=== PATIENT | male | born 1960 | race Caucasian/White ===

== ENCOUNTER 2016-04-01 16:55 | Inpatient (IN) | payer MEDICAID ==
[~2016-04-01] VITALS: Ht 167.6 cm; Wt 61.7 kg
[2016-04-01 17:29] LABS: BASOPHILS 0.2 % (0.0-2.0); EOSINOPHILS 0.1 % (0-7); HEMATOCRIT 43.1 % (42.0-54.0); HEMOGLOBIN 13.9 g/dL (13.5-17.5); IMMATURE GRANULOCYTES 0.4 % (0-5); LYMPHOCYTES 10.9 % (15-50); MCH 30.3 pg (26.0-34.0); MCHC 32.3 g/dL (31.0-37.0); MCV 94.1 fL (80.0-100.0); MEAN PLATELET VOLUME 10.1 fL (7.4-10.4); MONOCYTES 15.3 % (2-11); NEUTROPHILS 73.1 % (40-80); PLATELET COUNT 273 10x3/uL (130-400); RBC 4.58 10x6/uL (4.20-6.10); RDW 13.5 % (11.5-14.5); WBC 8.1 10x3/uL (4.8-10.8)
[2016-04-01 17:43] LABS: ALBUMIN 3.9 g/dL (3.4-5.0); ALKALINE PHOSPHATASE 67 U/L (46-116); ALT (SGPT) 32 U/L (10-68); BILIRUBIN - TOTAL 0.34 mg/dL (0.2-1.3); CALC OSMOLALITY 282 mosm/kg (275-300); CALCIUM 9.1 mg/dL (8.5-10.1); CARBON DIOXIDE 29.1 mmol/L (21.0-32.0); CHLORIDE - SERUM 98 mmol/L (98-107); GLUCOSE 83 mg/dL (74-106); POTASSIUM - SERUM 4.4 mmol/L (3.5-5.1); PROTEIN - SERUM 7.8 g/dL (6.4-8.2); SODIUM 138 mmol/L (136-145); UREA NITROGEN 34 mg/dL (7-18); eGFR NON AFRICAN AMERICAN 82 mL/min (90-120)
--- NOTE | 2016-04-01 22:00 | NUR ---
REC FROM ER VIA WC. AMBULATED TO BED WITH STEADY GAIT. SOB OBSERVED WITH EXERATION. HAS 02 AT 2L/NC STARTED IN ER. IV IN RIGHT HAND SL. ORIENTED TO ROOM AND CALL LIGHT. REQUESTED SOME JUICE AND A SANDWICH.
[2016-04-01 22:35] VITALS: BP 137/80
[2016-04-02 00:04] VITALS: BP 137/80; BMI 22.0
[2016-04-02] MEDS ORDERED: XANAX0.5 MG PO (00:20)
[2016-04-02] MEDS ORDERED: HYDROCODONE-APA1 TAB PO (00:21)
[2016-04-02] MEDS ORDERED: MOBIC7.5 MG PO (00:22)
[2016-04-02] MEDS ORDERED: IPRAT-ALBUT 0.5-3 ML UPD (00:24)
--- NOTE | 2016-04-02 05:00 | NUR ---
RESTING WITH EYES CLOSED. RR EVEN U/L. NO S/S OF DISTRESS OR DISCOMFORT. CALL LIGHT IN REACH.
[2016-04-02 05:59] VITALS: BP 133/69
[2016-04-02 07:39] LABS: BASOPHILS 0.2 % (0.0-2.0); EOSINOPHILS 0 % (0-7); HEMATOCRIT 40.4 % (42.0-54.0); HEMOGLOBIN 13.2 g/dL (13.5-17.5); IMMATURE GRANULOCYTES 0.2 % (0-5); LYMPHOCYTES 11.8 % (15-50); MCH 30.2 pg (26.0-34.0); MCHC 32.7 g/dL (31.0-37.0); MCV 92.4 fL (80.0-100.0); MEAN PLATELET VOLUME 10.3 fL (7.4-10.4); MONOCYTES 2.7 % (2-11); NEUTROPHILS 85.1 % (40-80); PLATELET COUNT 253 10x3/uL (130-400); RBC 4.37 10x6/uL (4.20-6.10); RDW 13.5 % (11.5-14.5)
[2016-04-02 07:41] LABS: WBC 4.1 10x3/uL (4.8-10.8)
--- NOTE | 2016-04-02 07:52 | NUR ---
AM ROUNDING- PT LAYING IN BED ON LEFT SIDE HAVING A BREATHING TX. PT STATES HE IS FEELING BETTER. PT IS UP AD ELIO. NO MONITOR. ON VIA NC. IV SEEN TO RIGHT HAND, SALINE LOCKED AND PATENT. AWAITING NEW ORDERS FROM DOCTOR. WILL CONTINUE TO MONITOR.
[2016-04-02 07:55] LABS: CALC OSMOLALITY 281 mosm/kg (275-300); CALCIUM 8.7 mg/dL (8.5-10.1); CARBON DIOXIDE 29.6 mmol/L (21.0-32.0); CHLORIDE - SERUM 100 mmol/L (98-107); CREATININE - SERUM 0.8 mg/dL (0.6-1.3); POTASSIUM - SERUM 4.7 mmol/L (3.5-5.1); SODIUM 137 mmol/L (136-145); UREA NITROGEN 28 mg/dL (7-18); eGFR NON AFRICAN AMERICAN > 90 mL/min (90-120)
[2016-04-02 08:00] VITALS: BP 128/83
[2016-04-02 08:01] LABS: GLUCOSE 137 mg/dL (74-106)
[2016-04-02 11:52] VITALS: Ht 167.6 cm; Wt 61.7 kg
[2016-04-02 12:33] VITALS: BP 123/78
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
--- NOTE | 2016-04-02 14:44 | NUR ---
ASKED PT IF HE WOULD LIKE TO TAKE A SHOWER, HE REPLIED, "NOT TODAY". WILL CONTINUE TO MONITOR.
[2016-04-02 16:00] VITALS: BP 140/70
--- NOTE | 2016-04-02 17:42 | NUR ---
PT SITTING UP IN BED WATCHING TV. PT IS ASKING ABOUT WHEN HE CAN GO HOME BECAUSE HE FEELS BETTER. WILL CONTINUE TO MONITOR.
--- NOTE | 2016-04-02 19:15 | NUR ---
AMBULATING IN ROOM. DENIES PAIN OR ANY NEEDS. IV IN R HAND INTACT SL. BED IS LOW WITH SR UP X2. ORIENTED TO CALL LIGHT FOR ANY NEEDS.
[2016-04-02 20:30] VITALS: BP 103/54
--- NOTE | 2016-04-02 23:20 | NUR ---
AWAKE WATCHING TV. DENIES ANY NEEDS.
[2016-04-03 00:30] VITALS: BP 125/69
--- NOTE | 2016-04-03 02:45 | NUR ---
SITTING ON SIDE OF BED. FINISHED RESP UPDRAFT TX. ADMIN SOLU-MEDROL IV PER ORDER. DENIES ANY NEEDS OR DISCOMFORTS.
[2016-04-03 04:30] VITALS: BP 143/81
[2016-04-03 06:43] LABS: BASOPHILS 0 % (0.0-2.0); EOSINOPHILS 0 % (0-7); HEMATOCRIT 41.1 % (42.0-54.0); HEMOGLOBIN 13.3 g/dL (13.5-17.5); IMMATURE GRANULOCYTES 0.1 % (0-5); LYMPHOCYTES 7.2 % (15-50); MCHC 32.4 g/dL (31.0-37.0); MCV 92.6 fL (80.0-100.0); MEAN PLATELET VOLUME 10.6 fL (7.4-10.4); MONOCYTES 3.9 % (2-11); NEUTROPHILS 88.8 % (40-80); PLATELET COUNT 290 10x3/uL (130-400); RBC 4.44 10x6/uL (4.20-6.10); RDW 13.5 % (11.5-14.5)
[2016-04-03 06:58] LABS: CALC OSMOLALITY 286 mosm/kg (275-300); CARBON DIOXIDE 30.5 mmol/L (21.0-32.0); CHLORIDE - SERUM 103 mmol/L (98-107); CREATININE - SERUM 0.8 mg/dL (0.6-1.3); GLUCOSE 162 mg/dL (74-106); POTASSIUM - SERUM 4.1 mmol/L (3.5-5.1); SODIUM 140 mmol/L (136-145); UREA NITROGEN 24 mg/dL (7-18); eGFR NON AFRICAN AMERICAN > 90 mL/min (90-120)
[2016-04-03 07:01] LABS: WBC 7.1 10x3/uL (4.8-10.8)
--- NOTE | 2016-04-03 07:45 | NUR ---
RESTING QUIETLY NAD NOTED
[2016-04-03 09:00] VITALS: BP 113/67
[2016-04-03] MEDS ORDERED: LEVAQUIN500 MG PO (09:13)
[2016-04-03] MEDS ORDERED: MUCINEX600 MG PO (09:14)
[2016-04-03] MEDS ORDERED: ADVAIR HFA [SP]12 GM INH (09:14)
[2016-04-03] MEDS ORDERED: STERAPRED DS 1210 MG PO (09:15)
[2016-04-03 11:58] VITALS: BP 137/77
--- NOTE | 2016-04-03 13:13 | NUR ---
IV DCD WITH TIP INTACT. INSTRUCTIONS GIVEN TO PT. TO PRIVATE CAR PER WHEELCHAIR
--- NOTE | 2016-04-24 13:51 | DS ---
PATIENT:DINA HAHN :56 MEDICAL RECORD: [id number] DISCHARGE SUMMARY ADMISSION DATE: 04/01/16 DISCHARGE DATE: 04/03/16 DATE OF ADMISSION: 04/01/2016 DATE OF DISCHARGE: 04/03/2016 CONDITION ON DISCHARGE: Improved. ADMITTING DIAGNOSES: Shortness of breath, chronic obstructive pulmonary disease exacerbation, and chronic low back pain. DISCHARGE DIAGNOSES: Shortness of breath, chronic obstructive pulmonary disease exacerbation, and chronic low back pain. HOSPITAL COURSE: The patient is a 55-year-old male with longstanding history of COPD. He apparently saw his PCP in [place] earlier this week, placed on prednisone. The patient states condition continued to worsen. He had increasing shortness of breath, presented to [facility] where he was admitted to my service on unassigned medicine for chronic obstructive pulmonary disease exacerbation. PHYSICAL EXAMINATION: VITAL SIGNS: He is a not well kept gentleman who in the Emergency Room, his pulse was 99, respirations 20, his O2 sat was 92% on room air, temperature was 97, and his blood pressure 120/87. HEENT: Normal. HEART: Tachycardic. LUNGS: He had decreased breath sounds in all rodrigez, end-expiratory wheezing present. ABDOMEN: Soft, bowel sounds are positive. No organomegaly. The patient was admitted, given updraft therapy as well as O2 supplementation, started on Levaquin IV as well as IV Solu-Medrol. The patient had a chest x-ray. His chest x-ray revealed chronic obstructive pulmonary disease with no obvious acute infiltrates. He initially had arterial blood gases showing a pH of 7.348, pCO2 of 48, pO2 of 61. O2 sat was 89.5%, his bicarbonate was 26.4. On the morning of the , the patient states he was ready to be discharged. He was coughing. He did have some yellow sputum production. He had ran no fever and he was not complaining of being short of breath. His vital signs, his pulse was 95, his blood pressure was 113/67, his respirations were 20 and 93% O2 on 1.5 liters. He had a white count of 7.1, his hemoglobin 13.3, hematocrit 41.1 and his platelets were 290. Sodium was 140, potassium 4.1, chloride ____, CO2 was 30.5. His BUN was 24, creatinine was 0.8. ASSESSMENT: 1. Chronic obstructive pulmonary disease exacerbation, improved. 2. Longstanding history of cigarette use. 3. History of anxiety. 4. Chronic low back pain. PLAN: The patient was discharged. He is to follow up with his primary care physician Dr. Mehta later on this week. DISCHARGE SUMMARY REPORT [id number] DINA HAHN MEDICATIONS: Include Levaquin 500 mg 1 p.o. daily. He is on Advair HFA 115/21 two puffs b.i.d., guaifenesin 1200 mg p.o. b.i.d., prednisone ____ double strength pack. Continue his home medications Xanax 0.5 q.6 hours p.r.n. anxiety, hydrocodone 10/325 one every 4 hours p.r.n. severe pain, Mobic 7.5 mg 2 tablets once a day, DuoNeb 2 puffs q.4 hours p.r.n. shortness of breath. DIET: [place] diet. DISCHARGE INSTRUCTIONS: The patient was advised to stop smoking immediately. FOLLOWUP: He would follow up with his PCP later in the week. ACTIVITIES: Ad leann. TRANSINT:[id number] Voice Confirmation ID: [id number] DOCUMENT ID: [id number] SAMRA CAZARES MD at 1351 CC: [id number] DICTATION DATE: 04/03/16 0922 SIMULATION SPECIALIST: 04/03/16 1117 DIS IN 04/03/16 [place] [address]
== END 2016-04-03 13:19 | disposition home or self-care (01) | DRG 192 ==
LOC: D.ER 16:55 → D.M2 20:10
PROVIDERS: Emergency Medicine; ADMIT Family Medicine
DX: J44.1 Chronic obstructive pulmonary disease with (acute) exacerbation (principal); G89.29 Other chronic pain; M54.5 Low back pain